=== PATIENT | female | born 1980 | race Hispanic/Latino ===

== ENCOUNTER 2021-02-28 00:21 | Emergency (ER) | payer OTHER, MEDICAID ==
[~2021-02-28] VITALS: Ht 160 cm; Wt 90.7 kg
[2021-02-28] MEDS ORDERED: METH4TAB3 PO (01:23)
[2021-02-28] MEDS ORDERED: DEXAMETHASONE 4 MG TAB PO SCH (01:30)
[2021-02-28] MEDS ORDERED: DEXAMETHASONE 4 MG TAB PO ONE (01:30)
[2021-02-28 01:55] VITALS: BP 152/74
== END 2021-02-28 01:51 | disposition home or self-care (01) ==
LOC: EDH 00:21
DX: R22.0 Localized swelling, mass and lump, head (principal); Z79.52 Long term (current) use of systemic steroids
CPT/HCPCS: 99283; J8540

== ENCOUNTER 2021-03-04 21:28 | Emergency (ER) | payer OTHER, MEDICAID ==
[~2021-03-04] VITALS: Ht 165.1 cm; Wt 93.0 kg
[~2021-03-04 21:28] MED LIST: METH4TAB3 PO
[2021-03-04 21:53] VITALS: BP 150/90
[2021-03-04] MEDS ORDERED: FAMOTIDINE 20MG TAB PO ONE (22:00)
[2021-03-04] MEDS ORDERED: DIPHENHYDRAMINE HCL 25 MG CAPSULE PO ONE (22:00)
[2021-03-04] MEDS ORDERED: FEXO180T94 PO (22:15)
[2021-03-04] MEDS ORDERED: FAMO-136 PO (22:15)
== END 2021-03-04 22:26 | disposition home or self-care (01) ==
LOC: EDH 21:28
DX: R22.0 Localized swelling, mass and lump, head (principal); R03.0 Elevated blood-pressure reading, without diagnosis of hypertension; E66.9 Obesity, unspecified; Z79.52 Long term (current) use of systemic steroids; Z79.899 Other long term (current) drug therapy; Z68.34 Body mass index [BMI] 34.0-34.9, adult
CPT/HCPCS: 99283; Q0163